=== PATIENT | male | born 1960 | race Caucasian/White ===

== ENCOUNTER 2017-08-13 10:05 | Emergency (ER) | payer SELFPAY ==
[~2017-08-13] VITALS: Ht 182.8 cm; Wt 127.0 kg
[~2017-08-13 10:05] MED LIST: ANAPROX DS550 MG PO; ATARAX25 MG PO; CLEOCIN HCL150 MG PO; DARVOCET N 1001 TAB PO; DAYPRO600 M1 PO; Fioricet 325 MG1 TAB PO; KEFLEX500 MG PO; MEDROL DOSEPAK4 MG PO; MOBIC15 MG PO; PREDNISONE20 MG PO; PRILOSEC20 MG PO; PRILOSEC40 MG PO; PROAIR HFA0.09 MG/AC INH; ROBAXIN750 MG PO; TRAMADOL HCL50 MG PO; VICODIN 500 MG-1 TAB PO; VISTARIL50 MG PO; ZITHROMAX250 MG PO; ZOCOR20 MG PO; ZOFRAN4 MG PO
[2017-08-13] MEDS ORDERED: Peridex 473 ML473 ML PO (10:10)
[2017-08-13] MEDS ORDERED: CLINDAMYCIN150 MG PO (10:10)
[2017-08-13] MEDS ORDERED: ZOFRAN4 MG PO (10:10)
[2017-08-13] MEDS ORDERED: NAPROSYN500 MG PO (10:10)
== END 2017-08-13 10:43 | disposition home or self-care (01) ==
LOC: ED 10:05
DX: K04.7 Periapical abscess without sinus (principal); R03.0 Elevated blood-pressure reading, without diagnosis of hypertension; F17.200 Nicotine dependence, unspecified, uncomplicated; Z79.899 Other long term (current) drug therapy; Z90.49 Acquired absence of other specified parts of digestive tract

== ENCOUNTER 2017-08-15 12:23 | Inpatient (IN) | payer SELFPAY ==
[~2017-08-15] VITALS: Ht 182.8 cm; Wt 134.7 kg
--- NOTE | ~2017-08-15 | O ---
[place], [place] OPERATIVE NOTE NAME: DIDIER VIZCAINO UNIT #: [id number] ROOM: [facility] DOCTOR: BOZENA WOODWARD DMD BIRTHDATE: [birth year] DOS: PREOPERATIVE DIAGNOSES: Right-sided facial cellulitis. POSTOPERATIVE DIAGNOSES: Right-sided facial cellulitis. ANESTHESIA: General anesthesia with endotracheal intubation. FLUIDS: Minimal. ESTIMATED BLOOD LOSS: Minimal. COMPLICATIONS: None. CONDITION: To PACU, stable. DESCRIPTION OF PROCEDURE: The patient was brought to the OR and placed in supine position. IV and EKG lines were placed. Endotracheal intubation and general anesthesia was administered. The patient was prepped and draped for oral procedures. Risks and benefits were explained to the patient prior to surgery. Clinical exam and x-rays taken determined irreversible pulpitis, tooth #28 and buccal space abscess. PROCEDURES PERFORMED: A 5 mL of 0.5% Sensorcaine with 100,000 epinephrine administered, stab incision in the lower right buccal vestibule, positive purulent drainage achieved, complete extraction tooth #28, lavaged, throat pack removed. The patient left the OR in good condition and went to the PACU. BOZENA WOODWARD DMD CM:OPRECORD:OPERATIVE NOTE [id number] BOZENA WOODWARD DMD 08/17/17 1601 interface
--- NOTE | ~2017-08-15 | CON ---
[place], [place] REPORT OF CONSULTATION NAME: DIDIER VIZCAINO UNIT #: [id number] ROOM: 504 DOCTOR: BOZENA WOODWARD DMD BIRTHDATE: [birth year] DOS: 08/16/2017 This is a consultation for a patient with a right-sided facial cellulitis. On exam, mild right-sided mandibular swelling. The patient denies any difficulty swallowing or breathing. The patient was admitted through the ER last night. Intraoral exam reveals generalized poor oral condition, extensive periodontal disease and caries. No sublingual or submental swelling noted. Right-sided buccal space swelling, positive for purulence. Tooth #27 appears to be acutely abscessed. The patient denies improvement overnight. Discussed treatment options with the patient including extraction and root canal therapy. The patient chose extraction. Discussed options of treatment in the office or under general. The patient chose to have the extraction under general. The patient will be scheduled later for extraction and incision and drainage. Once the surgery is completed, the patient will be okay for dental discharge with an oral antibiotic, recommend clindamycin 300 mg t.i.d. for 7-10 days. BOZENA WOODWARD DMD CM:CONSTR:REPORT OF CONSULTATION 1135 08/16/17 1820 interface
[~2017-08-15 12:23] MED LIST changes: +CLINDAMYCIN150 MG PO; +NAPROSYN500 MG PO; +Peridex 473 ML473 ML PO
[2017-08-15 12:32] VITALS: BP 155/90
[2017-08-15 13:04] LABS: BASO # 0.1 10*3/uL (0.0-0.1); BASO % 0.4 % (0.0-1.0); EOS # 0.2 10*3/uL (0.0-0.4); EOS % 1.6 % (1.0-4.0); HEMATOCRIT 42.4 % (42.0-52.0); HEMOGLOBIN 14.3 g/dl (14.0-18.0); LYMPH # 3.2 10*3/uL (1.3-4.4); LYMPH % 26.9 % (27.0-41.0); MEAN CELL VOLUME 89.8 fl (80.0-94.0); MEAN CORPUSCULAR HGB 30.3 pg (27.0-31.0); MEAN CORPUSCULAR HGB CONC 33.7 g/dl (33.0-37.0); MEAN PLATELET VOLUME 9.4 fl (9.6-12.3); MONO # 0.9 10*3/uL (0.1-1.0); MONO % 7.5 % (3.0-9.0); NEUT # 7.6 10*3/uL (2.3-7.9); NEUT % 63.3 % (47.0-73.0); PLATELET COUNT AUTOMATED 194 10*3/uL (130-400); RED BLOOD COUNT 4.72 10*6/uL (4.50-5.90); RED CELL DISTRI WIDTH 12.4 % (0-14.5); WHITE BLOOD COUNT 11.9 10*3/uL (4.8-10.8)
[2017-08-15 13:18] LABS: ALBUMIN 3.6 gm/dl (3.1-4.5); ALKALINE PHOSPHATASE 114 U/L (45-117); BUN 14 mg/dl (7-24); CHLORIDE 101 mmol/L (98-107); CREATININE 0.86 mg/dL (0.70-1.30); POTASSIUM 4.1 mmol/L (3.5-5.1); SGOT/AST 12 IU/L (3-35); SGPT/ALT 22 U/L (12-78); SODIUM 136 mmol/L (136-145); TOTAL PROTEIN 6.9 gm/dL (6.4-8.2)
[2017-08-15 14:27] VITALS: BP 150/82
[2017-08-15 15:29] VITALS: BP 140/88
[2017-08-15 15:59] VITALS: BP 116/70
[2017-08-15 16:47] VITALS: BP 152/89
[2017-08-15] MEDS ORDERED: TOPROL XL25 MG PO (18:14)
[2017-08-15] MEDS ORDERED: METFORMIN500 MG PO (18:14)
[2017-08-15] MEDS ORDERED: LISINOPRIL5 MG PO (18:14)
[2017-08-15] MEDS ORDERED: LIPITOR40 MG PO (18:14)
[2017-08-15 20:00] VITALS: BP 133/81
[2017-08-16] VITALS (9 sets, daily range): BP systolic 116–147; BP diastolic 76–95
[2017-08-16 07:01] LABS: BASO % 0.4 % (0.0-1.0); EOS # 0.2 10*3/uL (0.0-0.4); EOS % 2.6 % (1.0-4.0); HEMATOCRIT 41.4 % (42.0-52.0); HEMOGLOBIN 13.6 g/dl (14.0-18.0); LYMPH # 3.6 10*3/uL (1.3-4.4); LYMPH % 38.8 % (27.0-41.0); MEAN CELL VOLUME 91.8 fl (80.0-94.0); MEAN CORPUSCULAR HGB 30.2 pg (27.0-31.0); MEAN CORPUSCULAR HGB CONC 32.9 g/dl (33.0-37.0); MEAN PLATELET VOLUME 9.6 fl (9.6-12.3); MONO # 0.8 10*3/uL (0.1-1.0); MONO % 8.6 % (3.0-9.0); NEUT # 4.6 10*3/uL (2.3-7.9); NEUT % 49.1 % (47.0-73.0); PLATELET COUNT AUTOMATED 187 10*3/uL (130-400); RED BLOOD COUNT 4.51 10*6/uL (4.50-5.90); RED CELL DISTRI WIDTH 12.6 % (0-14.5); WHITE BLOOD COUNT 9.4 10*3/uL (4.8-10.8)
[2017-08-16 07:33] LABS: ACT PARTIAL THROMBO TIME 24.5 SECONDS (20.8-31.5); INTERNATIONAL NORM RATIO 0.9 (2.0-3.5)
[2017-08-16 07:38] LABS: ALBUMIN 3.3 gm/dl (3.1-4.5); ALKALINE PHOSPHATASE 89 U/L (45-117); BUN 13 mg/dl (7-24); CHLORIDE 102 mmol/L (98-107); HDL CHOLESTEROL 36 mg/dl (40-60); POTASSIUM 4.2 mmol/L (3.5-5.1); SODIUM 139 mmol/L (136-145)
[2017-08-16 07:43] LABS: CHOLESTEROL 185 mg/dL (<200); CREATININE 0.75 mg/dL (0.70-1.30); LDL CHOLESTEROL 119 mg/dL (9-159); PHOSPHOROUS 3.3 mg/dL (2.5-4.9); SGOT/AST 11 IU/L (3-35); SGPT/ALT 24 U/L (12-78); TOTAL PROTEIN 6.7 gm/dL (6.4-8.2); TRIGLYCERIDES 151 mg/dl (<150); VLDL CHOLESTEROL 30 mg/dL (6-40)
[2017-08-16 07:55] LABS: VITAMIN D, 25-HYDROXY 16.5 ng/mL (30-100)
[2017-08-16] MEDS ORDERED: NICOTINE PATCH1 EAC2 TD (12:29)
== END 2017-08-16 14:02 | disposition home or self-care (01) | DRG 603 ==
LOC: ED 12:23 → 5E 15:15 → EDHOLD 15:15 → 5E 16:10
PROVIDERS: Nurse Practitioner Family; Registered Nurse
PROC: 0CDXXZ0 Extraction of Lower Tooth, Single, External Approach (ICD-10-PCS; principal; 2017-08-15)
PROC: 0C9X0Z0 Drainage of Lower Tooth, Open Approach, Single (ICD-10-PCS; principal; 2017-08-15)
DX: L03.211 Cellulitis of face (principal); E11.65 Type 2 diabetes mellitus with hyperglycemia; Z68.41 Body mass index [BMI] 40.0-44.9, adult; E66.9 Obesity, unspecified; J44.9 Chronic obstructive pulmonary disease, unspecified; R03.0 Elevated blood-pressure reading, without diagnosis of hypertension; Z90.49 Acquired absence of other specified parts of digestive tract; Z82.49 Family history of ischemic heart disease and other diseases of the circulatory system; Z80.9 Family history of malignant neoplasm, unspecified; Z79.2 Long term (current) use of antibiotics; Z78.9 Other specified health status; Z79.84 Long term (current) use of oral hypoglycemic drugs; Z79.899 Other long term (current) drug therapy

== ENCOUNTER 2019-01-26 14:02 | Emergency (ER) | payer SELFPAY ==
[~2019-01-26] VITALS: Ht 182.8 cm; Wt 129.3 kg
[~2019-01-26 14:02] MED LIST changes: +LIPITOR40 MG PO; +LISINOPRIL5 MG PO; +METFORMIN500 MG PO; +NICOTINE PATCH1 EAC2 TD; +TOPROL XL25 MG PO
[2019-01-26 14:21] LABS: BILIRUBIN NEGATIVE (NEGATIVE); BLOOD NEGATIVE (NEGATIVE); CLARITY CLEAR (CLEAR); COLOR YELLOW (YELLOW); GLUCOSE 2+ (NEGATIVE); KETONE TRACE (NEGATIVE); LEUKO ESTERASE NEGATIVE (NEGATIVE); NITRITE NEGATIVE (NEGATIVE); SPECIFIC GRAVITY 1.015 (1.005-1.030); UROBILINOGEN 0.2 E.U./dl (0.2-1.0)
[2019-01-26 14:31] LABS: BACTERIA TRACE; EPITHELIAL CELLS 0-2; WBC 0-2 wbc/hpf (0-5)
[2019-01-26 15:11] LABS: BASO # 0.1 10*3/uL (0.0-0.1); BASO % 0.6 % (0.0-1.0); EOS # 0.1 10*3/uL (0.0-0.4); EOS % 1.1 % (1.0-4.0); HEMATOCRIT 44.3 % (42.0-52.0); LYMPH # 3.6 10*3/uL (1.3-4.4); LYMPH % 37.8 % (27.0-41.0); MEAN CELL VOLUME 92.7 fl (80.0-94.0); MEAN CORPUSCULAR HGB 31.4 pg (27.0-31.0); MEAN CORPUSCULAR HGB CONC 33.9 g/dl (33.0-37.0); MEAN PLATELET VOLUME 9.3 fl (9.6-12.3); MONO # 0.7 10*3/uL (0.1-1.0); MONO % 7.4 % (3.0-9.0); NEUT # 5.1 10*3/uL (2.3-7.9); NEUT % 52.8 % (47.0-73.0); PLATELET COUNT AUTOMATED 203 10*3/uL (130-400); RED BLOOD COUNT 4.78 10*6/uL (4.50-5.90); RED CELL DISTRI WIDTH 12.3 % (0-14.5); WHITE BLOOD COUNT 9.6 10*3/uL (4.8-10.8)
[2019-01-26 15:25] LABS: ALBUMIN 3.3 gm/dl (3.1-4.5); ALKALINE PHOSPHATASE 133 U/L (45-117); BUN 14 mg/dl (7-24); CHLORIDE 103 mmol/L (98-107); CREATININE 1.29 mg/dL (0.70-1.30); LIPASE 607 U/L (73-393); POTASSIUM 4.3 mmol/L (3.5-5.1); SGOT/AST 27 IU/L (3-35); SGPT/ALT 46 U/L (12-78); SODIUM 136 mmol/L (136-145); TOTAL PROTEIN 6.6 gm/dL (6.4-8.2)
== END 2019-01-26 17:35 | disposition home or self-care (01) ==
LOC: ED 14:02
PROVIDERS: Physician Assistant
DX: R35.0 Frequency of micturition (principal); R10.32 Left lower quadrant pain; R30.9 Painful micturition, unspecified; R39.11 Hesitancy of micturition; F17.200 Nicotine dependence, unspecified, uncomplicated; Z79.2 Long term (current) use of antibiotics; Z79.899 Other long term (current) drug therapy; Z79.84 Long term (current) use of oral hypoglycemic drugs; Z90.49 Acquired absence of other specified parts of digestive tract

== ENCOUNTER → 2021-05-29 | Outpatient (CLI) | payer OTHER | END | disposition home or self-care (01) | LOC: COVID19 15:48 | PROVIDERS: ATTEND Internal Medicine | DX: Z11.52 Encounter for screening for COVID-19 (principal) ==

== ENCOUNTER 2023-11-04 10:36 | Emergency (ER) | payer OTHER ==
[~2023-11-04] VITALS: Ht 182.8 cm; Wt 104.3 kg
[~2023-11-04 10:36] MED LIST changes: +PREDNISONE20 M1 PO; +VIBRAMYCIN100 MG PO
[2023-11-04] MEDS ORDERED: Acetaminophen/Oxycodone 5 MG/325 MG TABLET PO ONE (10:50)
[2023-11-04] MEDS ORDERED: MELOXICAM15 MG PO (10:58)
== END 2023-11-04 11:31 | disposition home or self-care (01) ==
LOC: ED 10:36
DX: S43.402A Unspecified sprain of left shoulder joint, initial encounter (principal); J44.9 Chronic obstructive pulmonary disease, unspecified; I25.2 Old myocardial infarction; I10 Essential (primary) hypertension; E11.9 Type 2 diabetes mellitus without complications; Z90.49 Acquired absence of other specified parts of digestive tract; Z95.5 Presence of coronary angioplasty implant and graft; Z98.890 Other specified postprocedural states; Z72.0 Tobacco use; X58.XXXA Exposure to other specified factors, initial encounter; Y93.89 Activity, other specified; Y92.89 Other specified places as the place of occurrence of the external cause; Y99.8 Other external cause status

== ENCOUNTER → 2023-12-16 | Outpatient (CLI) | payer OTHER ==
[~2023-12-16] MED LIST changes: +AVPAK AZITHROM250 M1 PO; +MELOXICAM15 MG PO
[2023-12-16 14:36] LABS: BASO # 0.1 10*3/uL (0.0-0.1); BASO % 0.6 % (0.0-1.0); EOS # 0.1 10*3/uL (0.0-0.4); EOS % 0.8 % (1.0-4.0); HEMATOCRIT 44.2 % (42.0-52.0); LYMPH # 3.3 10*3/uL (1.3-4.4); LYMPH % 33.9 % (27.0-41.0); MEAN CELL VOLUME 90.4 fl (80.0-94.0); MEAN CORPUSCULAR HGB 30.7 pg (27.0-31.0); MEAN CORPUSCULAR HGB CONC 33.9 g/dl (33.0-37.0); MEAN PLATELET VOLUME 9.2 fl (9.6-12.3); MONO # 0.8 10*3/uL (0.1-1.0); NEUT # 5.5 10*3/uL (2.3-7.9); NEUT % 56.5 % (47.0-73.0); PLATELET COUNT AUTOMATED 224 10*3/uL (130-400); RED BLOOD COUNT 4.89 10*6/uL (4.50-5.90); RED CELL DISTRI WIDTH 11.9 % (0-14.5); WHITE BLOOD COUNT 9.8 10*3/uL (4.8-10.8)
[2023-12-16 14:55] LABS: ALKALINE PHOSPHATASE 103 U/L (46-116); BUN 15 mg/dl (9-23); CHLORIDE 102 mmol/L (98-107); CHOLESTEROL 217 mg/dL (<200); LDL CHOLESTEROL 136 mg/dL (9-159); POTASSIUM 3.9 mmol/L (3.4-5.1); SGPT/ALT 20 U/L (5-49); TOTAL PROTEIN 7.1 gm/dL (6.0-8.0); TRIGLYCERIDES 206 mg/dl (<150)
== END | disposition home or self-care (01) ==
LOC: LAB 14:14
PROVIDERS: ATTEND Internal Medicine
DX: R30.0 Dysuria (principal); N52.9 Male erectile dysfunction, unspecified

== ENCOUNTER 2023-12-22 12:49 | Emergency (ER) | payer OTHER ==
[~2023-12-22] VITALS: Ht 182.8 cm; Wt 108.9 kg
[~2023-12-22 12:49] MED LIST changes: -AVPAK AZITHROM250 M1 PO
[2023-12-22] MEDS ORDERED: ACETAMINOPHEN 325 MG TAB PO ONE (13:35)
[2023-12-22] MEDS ORDERED: SODIUM CHLORIDE 0.9% 1,000 ML IV ONE (13:35)
[2023-12-22 14:12] LABS: BASO # 0.1 10*3/uL (0.0-0.1); BASO % 0.3 % (0.0-1.0); EOS # 0.1 10*3/uL (0.0-0.4); EOS % 0.3 % (1.0-4.0); HEMATOCRIT 43.5 % (42.0-52.0); LYMPH # 2.1 10*3/uL (1.3-4.4); MEAN CELL VOLUME 88.4 fl (80.0-94.0); MEAN CORPUSCULAR HGB 30.5 pg (27.0-31.0); MEAN CORPUSCULAR HGB CONC 34.5 g/dl (33.0-37.0); MEAN PLATELET VOLUME 9.9 fl (9.6-12.3); MONO # 1.3 10*3/uL (0.1-1.0); MONO % 8.6 % (3.0-9.0); NEUT # 11.7 10*3/uL (2.3-7.9); NEUT % 76.4 % (47.0-73.0); PLATELET COUNT AUTOMATED 217 10*3/uL (130-400); RED BLOOD COUNT 4.92 10*6/uL (4.50-5.90); WHITE BLOOD COUNT 15.3 10*3/uL (4.8-10.8)
[2023-12-22 14:21] LABS: ALKALINE PHOSPHATASE 111 U/L (46-116); BUN 8 mg/dl (9-23); CHLORIDE 98 mmol/L (98-107); POTASSIUM 4.1 mmol/L (3.4-5.1); SGPT/ALT 12 U/L (5-49); TOTAL PROTEIN 7.1 gm/dL (6.0-8.0)
[2023-12-22] MEDS ORDERED: Ketorolac Tromethamine 30 MG/ML VIAL IV ONE (16:25)
[2023-12-22] MEDS ORDERED: AVPAK AZITHROM250 M1 PO (18:09)
[2023-12-22] MEDS ORDERED: AZITHROMYCIN 250 MG TAB PO ONE (18:10)
== END 2023-12-22 18:40 | disposition home or self-care (01) ==
LOC: ED 12:49
PROVIDERS: Nurse Practitioner Family
DX: J44.9 Chronic obstructive pulmonary disease, unspecified (principal); Z20.822 Contact with and (suspected) exposure to COVID-19; E78.00 Pure hypercholesterolemia, unspecified; I25.2 Old myocardial infarction; I10 Essential (primary) hypertension; E11.9 Type 2 diabetes mellitus without complications; Z72.0 Tobacco use; Z90.49 Acquired absence of other specified parts of digestive tract; Z95.5 Presence of coronary angioplasty implant and graft; Z98.890 Other specified postprocedural states

== ENCOUNTER 2024-07-18 09:48 | Emergency (ER) | payer OTHER ==
[~2024-07-18 09:48] MED LIST changes: +AVPAK AZITHROM250 M1 PO
[2024-07-18] MEDS ORDERED: OZEMPIC0.25 MG/03 SQ (10:03)
[2024-07-18] MEDS ORDERED: ZESTRIL10 MG PO (10:03)
[2024-07-18] MEDS ORDERED: FLOMAX0.4 MG PO (10:06)
[2024-07-18] MEDS ORDERED: NEURONTIN300 MG PO (10:06)
[2024-07-18] MEDS ORDERED: AMOX-CLAV 875-1 EACH PO (10:40)
[2024-07-18] MEDS ORDERED: Amoxicillin/Clavulanate Pota 875 MG TAB PO ONE (10:40)
== END 2024-07-18 10:39 | disposition home or self-care (01) ==
LOC: ED 09:48
DX: K04.7 Periapical abscess without sinus (principal); J44.9 Chronic obstructive pulmonary disease, unspecified; I25.2 Old myocardial infarction; I10 Essential (primary) hypertension; E11.9 Type 2 diabetes mellitus without complications; Z72.0 Tobacco use; Z90.49 Acquired absence of other specified parts of digestive tract; Z95.5 Presence of coronary angioplasty implant and graft; Z98.890 Other specified postprocedural states